=== PATIENT | male | born 1960 | race Two or more races ===

== ENCOUNTER 2019-01-06 21:33 | Emergency (ER) | payer SELFPAY ==
[~2019-01-06] VITALS: Ht 172.7 cm; Wt 81.0 kg
[2019-01-06 22:09] VITALS: BP 134/83
== END 2019-01-06 23:00 | disposition left against medical advice (07) ==
LOC: ER 21:33
DX: Z53.21 Procedure and treatment not carried out due to patient leaving prior to being seen by health care provider (principal); I10 Essential (primary) hypertension; G43.909 Migraine, unspecified, not intractable, without status migrainosus